=== PATIENT | female | born 1980 | race Caucasian/White ===

== ENCOUNTER 2022-07-06 06:37 | Emergency (ER) | payer SELFPAY ==
[~2022-07-06] VITALS: Ht 165.1 cm; Wt 74.4 kg
[2022-07-06 06:45] VITALS: BP_SYST 133
[2022-07-06] MEDS ORDERED: ONDANSETRON 4 MG ODT TAB PO ONE (07:00)
[2022-07-06] MEDS ORDERED: MORPHINE 4 MG INJ. 4 MG/ML VIAL IM ONE (07:00)
[2022-07-06] MEDS ORDERED: cefTRIAXone 1 GM VIAL IM ONE (07:00)
--- NOTE | 2022-07-06 07:05 | NUR ---
PT HERE C/O OF SORETHROAT X3 DAYS, PT DENIES FEVER AND COUGH. PT STATED THAT SHE HAS INTERMITTENT NAUSEA. DENIES VOMITING. HX:NECK/THROAT SURGERY PT AAOX4, NO SOB NOTEDAND NOT IN ANY DISTRESS. PT AMBULATED TO RM5 WITH STAEDY GAIT. SEENAND EXAMINE BY DR. ASHTON
--- NOTE | 2022-07-06 07:10 | NUR ---
ER at bedside examining patient.
[2022-07-06] MEDS ORDERED: HYDR-3917 PO (07:18)
[2022-07-06] MEDS ORDERED: PENI500T PO (07:18)
[2022-07-06] MEDS ORDERED: PRED50TA PO (07:24)
[2022-07-06 07:49] VITALS: BP_SYST 134
--- NOTE | 2022-07-06 07:49 | NUR ---
Patient given written and verbal discharge instructions and verbalizes understanding. ER MD discussed with patient the results and treatment provided. Patient in stable condition. ID arm band removed. Rx of [place], Penicillin, and Prednisone given. Patient educated on pain management and to follow up with PMD. Pain Scale 0/10. Opportunity for questions provided and answered. Medication side effect fact sheet provided.
== END 2022-07-06 07:49 | disposition home or self-care (01) ==
LOC: SED 06:37
DX: R59.1 Generalized enlarged lymph nodes (principal); M54.2 Cervicalgia; Z79.899 Other long term (current) drug therapy
CPT/HCPCS: 99284; 96372; Q0162; J0696; J2270

== ENCOUNTER 2022-07-29 00:39 | Emergency (ER) | payer SELFPAY ==
[~2022-07-29] VITALS: Ht 160 cm; Wt 77.1 kg
[~2022-07-29 00:39] MED LIST: HYDR-3917 PO; PENI500T PO; PRED50TA PO
[2022-07-29 01:13] VITALS: BP_SYST 125
[2022-07-29] MEDS ORDERED: DEXAMETHASONE SOD PHOSPHATE 10 MG/ML VIAL IM ONE (01:15)
[2022-07-29] MEDS ORDERED: IPRATROPIUM/ALBUTEROL SULFATE 3 ML AMPUL.NEB (DUONEB) INH ONE (01:15)
[2022-07-29] MEDS ORDERED: LORazepam 1 MG TABLET PO ONE (01:15)
[2022-07-29] MEDS ORDERED: IPRATROPIUM/ALBUTEROL SULFATE 3 ML AMPUL.NEB (DUONEB) ONE (01:35)
[2022-07-29 01:43] LABS: BASOPHILS % (AUTO) 0.2 % (0.0-2.0); EOSINOPHILS % (AUTO) 0.1 % (0.0-4.0); HEMATOCRIT 28.3 % (36-48); LYMPHOCYTES # (AUTO) 1.2 K/uL (1.0-5.5); LYMPHOCYTES % (AUTO) 16.8 % (20.5-51.5); MEAN CORPUSCULAR VOLUME 83 fL (79.0-98.0); MONOCYTES # (AUTO) 0.6 K/uL (0.0-1.0); MONOCYTES % (AUTO) 8.3 % (1.7-9.3); NEUTROPHILS # (AUTO) 5.4 K/uL (1.8-7.7); NEUTROPHILS % (AUTO) 74.6 % (40.0-70.0); PLATELET COUNT (AUTO) 283 K/uL (130-430); RED BLOOD CELL COUNT(AUTO) 3.41 MIL/uL (4.2-6.2); RED CELL DISTRIBUTION WIDTH 13.9 % (9.0-15.0); WHITE BLOOD COUNT (AUTO) 7.2 K/uL (4.8-10.8)
[2022-07-29 01:57] LABS: CALCIUM 8.3 mg/dL (8.4-11.0); CREATININE 0.75 mg/dL (0.55-1.30)
[2022-07-29 02:07] LABS: POTASSIUM 2.8 mmol/L (3.5-5.1)
[2022-07-29 02:10] LABS: TOTAL BILIRUBIN 0.1 mg/dL (0.0-1.0)
[2022-07-29] MEDS ORDERED: IBUPROFEN 800 MG TABLET PO ONE (02:15)
[2022-07-29] MEDS ORDERED: DIPHENHYDRAMINE HCL 50 MG CAPSULE PO ONE (02:15)
[2022-07-29] MEDS ORDERED: POTASSIUM CHLORIDE 20 MEQ TAB.PRT.SR PO ONE (02:15)
[2022-07-29] MEDS ORDERED: DIPHENHYDRAMINE HCL 50 MG CAPSULE ONE (02:20)
[2022-07-29] MEDS ORDERED: PRED20TA PO (02:21)
[2022-07-29] MEDS ORDERED: ZIT250 PO (02:21)
[2022-07-29] MEDS ORDERED: ALBMDI INH (02:21)
[2022-07-29 02:42] VITALS: BP_SYST 122
== END 2022-07-29 02:41 | disposition home or self-care (01) ==
LOC: SED 00:39
DX: U07.1 COVID-19 (principal); R06.02 Shortness of breath; R05.9 Cough, unspecified; R50.9 Fever, unspecified; Z79.899 Other long term (current) drug therapy; Z20.822 Contact with and (suspected) exposure to COVID-19
CPT/HCPCS: 99284; 71045; 87426; 80053; 84702; 85025; 36415; 94640; 96372; Q0163; J1100